=== PATIENT | male | born 1975 | race Caucasian/White ===

== ENCOUNTER 2018-05-18 12:27 | Emergency (ER) | payer BC ==
[~2018-05-18] VITALS: Ht 165.1 cm; Wt 70.3 kg
[2018-05-18] MEDS ORDERED: TRUVADA 100 MG1 EACH (12:32)
== END 2018-05-18 14:40 | disposition home or self-care (01) ==
LOC: ER 12:27
DX: H01.003 Unspecified blepharitis right eye, unspecified eyelid (principal)